=== PATIENT | male | born 1980 | race Caucasian/White ===

== ENCOUNTER 2021-08-28 16:06 | Emergency (ER) | payer BC, SELFPAY ==
[2021-08-28 16:20] VITALS: BP 101/74; PULSE 88; RESP 18; TEMP 36.5; O2SAT 99
--- NOTE | 2021-08-28 16:23 | ED.MALEGU ---
HPI - Male Genitourinary General Chief complaint: Urogenital-Male Stated complaint: swollen testicle Time Seen by Provider: 08/28/21 16:24 Source: patient and RN notes reviewed Mode of arrival: ambulatory Limitations: no limitations History of Present Illness Complaint: testicle pain and testicle swelling Onset (ago): day(s) (3) Duration: constant Location: right testicle Radiation: right inguinal region Severity: severe Quality: aching, sharp and stabbing Relieving factors: none Exacerbating factors: palpation and movement Associated symptoms: Reports dysuria (Mild) Related Data Home Medications Medication Instructions Recorded Confirmed No Home Medications 08/28/21 08/28/21 Allergies Allergy/AdvReac Type Severity Reaction Status Date / Time No Known Allergies Allergy Verified 08/28/21 20:22 Review of Systems Review of Systems: All systems reviewed & are unremarkable except as noted in HPI and below Constitutional: Constitutional: Reports chills and Denies fever(s) Gastrointestinal: Gastrointestinal: Reports nausea and Denies vomiting Genitourinary: Genitourinary: Denies hematuria, Denies oliguria, Denies penile discharge, Denies urinary frequency and Denies urinary incontinence [facility] Past Medical History Medical History (Updated 08/28/21 @ 19:57 by Toñito Kunz MD) No active medical problems Surgical History Surgical History (Updated 08/28/21 @ 16:50 by Toñito Kunz MD) H/O shoulder surgery right Social History Social History (Updated 08/28/21 @ 16:50 by Toñito Kunz MD) Smoking packs per day: 1 Smoking cigarettes per day: 20.0 Smoking status: Current every day smoker Tobacco type: cigarettes Alcohol intake: current Alcohol use details: rare Substance use: current Substance use type: marijuana Exam Const: General: no acute distress, alert and ill appearing acutely Nutritional Appearance: well nourished Orientation/consciousness: patient oriented x3 Limitations: no limitations HENMT: Head: normal to inspection General nose exam: Normal external nose present Eyes: Conjunctivae: conjunctivae normal Pupils: Equal, round and reactive pupils present EOM: EOMs intact bilaterally Neck: Neck: normal visual inspection Resp: Effort & Inspection: normal respiratory effort Auscultation: clear to auscultation bilaterally Cardio: Rate: regular rate Rhythm: regular rhythm GI: GI Palp: Yes Soft to palpation, No Tenderness to palpation present (GI) and No Guarding due to palpation present (GI) Auscultation: normal bowel sounds : Penis: Yes normal penis Scrotum: not erythematous Testes: epididymal tenderness on the right, testicular swelling on the right and testicular tenderness on the right Back/Spine/Pelvis: Back: no CVA tenderness Cervical Spine: cervical ROM normal Thoracic/Lumbar Spine: thoraco-lumbar ROM normal Skin: General skin exam: normal color Rashes: no rashes Neuro: General: patient oriented x3, moves all extremities, no meningeal signs and no focal motor deficits Cranial nerves: Yes CN's II-XII intact bilaterally Speech: normal speech Extrem: General: normal to inspection and no clubbing, cyanosis or edema Psych: Appearance: grossly normal and well kempt Mental Status: mental status grossly normal Affect: normal affect Attitude: cooperative Thought content: Yes Normal thought content present Course Course Emergency Course: Arrangements are made for patient to be transported to [facility] get ultrasound of the right testicle and then be transported back. Vital Signs Vital signs: Vital Signs Temperature 36.5 C 08/28/21 16:20 Pulse Rate 88 08/28/21 16:20 Respiratory Rate 18 08/28/21 16:20 Blood Pressure 101/74 08/28/21 16:20 Pulse Oximetry 99 08/28/21 16:20 Temperature 36.9 C 08/28/21 20:59 Pulse Rate 81 08/28/21 20:59 Respiratory Rate 14 08/28/21 20:59 Blood Pressure 102/75 08/28/21
--- NOTE | 2021-08-28 18:59 | PC.NURSE ---
Report given to ANGELIKA Hartley.
[2021-08-28] MEDS: HYDROcodone/acetaminophen (*CRX) 5-325 MG TABLET 1 TAB PO (20:29)
[2021-08-28] MEDS: LIDOCAINE HCL 1% LOCAL INJ 20 ML VIAL (20:45)
[2021-08-28] MEDS: cefTRIAXone 500 MG VIAL IM (20:46)
[2021-08-28 20:59] VITALS: BP 102/75; PULSE 81; RESP 14; TEMP 36.9; O2SAT 100
== END 2021-08-28 20:59 | disposition home or self-care (01) ==
PROVIDERS: Emergency Provider Emergency Medicine; PCP Physician Assistant
DX: N45.3 Epididymo-orchitis (principal)
CPT/HCPCS: 96372; 99283; A9270; J0696

== ENCOUNTER 2021-08-28 19:16 | Outpatient (CLI) | payer OTHER, SELFPAY ==
--- NOTE | ~2021-08-28 | US_ITS ---
EXAMINATION: US scrotum doppler DATE: 08/28/2021 19:23 INDICATION: Right testicular pain TECHNIQUE: Testicular sonogram utilizing grayscale and Doppler COMPARISON: None. FINDINGS: The right testis measures 4.3 x 3.1 x 2.6 cm. The left testis measures 4.9 x 3.5 x 1.8 cm. There is increased vascular flow of the right testicle and epididymis compared to the left. The right epididymis is mildly enlarged compared to the left. The left epididymis is normal with normal vascul ar flow. There is a moderate-sized right hydrocele. IMPRESSION: 1. Findings suggestive of right epididymoorchitis. 2. Moderate-sized right hydrocele. Reviewed, dictated and finalized at location [facility] [employer]
== END 2021-08-28 19:17 | disposition home or self-care (01) ==
PROVIDERS: Visit Provider Emergency Medicine
DX: N50.811 Right testicular pain (principal); N43.3 Hydrocele, unspecified
CPT/HCPCS: 76870; 93976